=== PATIENT | female | born 1975 | race Caucasian/White ===

== ENCOUNTER → 2022-07-10 10:53 | Outpatient (BNVA) | payer MEDICAID, SELFPAY | PROVIDERS: Visit Provider Student in an Organized Health Care Education/Training Program | DX: S82.892A Other fracture of left lower leg, initial encounter for closed fracture (principal); X58.XXXA Exposure to other specified factors, initial encounter | CPT/HCPCS: 73610; A4590 ==

== ENCOUNTER 2022-07-15 10:06 | Day surgery (SDC) | payer MEDICAID, SELFPAY ==
[2022-07-15] VITALS (9 sets, daily range): BP systolic 142–161; BP diastolic 63–94; PULSE 59–73; RESP 13–18; TEMP 36.2–36.4; O2SAT 95–100
--- NOTE | 2022-07-15 | XR_ITS ---
WS: [id number] XR ankle LT 2V [id number] REASON FOR EXAM: janna pics FINDINGS: Plate and screw fixation of distal left fibular metadiaphyseal spiral fracture involving the syndesmo sis. Fracture fragments and surgical appliances are in proper position and alignment. XR/XR ankle LT 2V 74096 IMPRESSION: Fixation of left fibular fracture without abnormality.
[2022-07-15 10:38] LABS: OR HCG Qualitative Urine Negative (Negative)
--- NOTE | 2022-07-15 10:43 | ANES.PREANE2 ---
Pre-Anesthetic Assessment Height/Weight: Height 1.65 m Weight 117.934 kg Temp Pulse Resp BP Pulse Ox O2 Del Method 97.3 F L 65 18 158/89 98 07/15/22 10:33 07/15/22 10:33 07/15/22 10:33 07/15/22 10:33 07/15/22 10:33 07/15/22 10:33 Preop Diagnosis: Left bimalleolar equivalent ankle fracture Operation Date: 07/15/22 12:05 Proposed Procedures p open reduction internal fixation left ankle 84804 possible syndesmotic fixation left ankle 29018,T14.8XXA(Left) - Adam Gonzalez DO Familial anesthetic complications: None Was Beta Antonieta taken within 24 hours: N/A Was Clonidine taken within 24 hours: N/A Last intake: Intake Last Liquid Date 07/14/22 Last Liquid Time 23:50 Last Solid Date 07/14/22 Last Solid Time 23:40 Social No alcohol and No tobacco Exam alert, oriented x 3, clear to auscultation bilaterally and regular rate & rhythm Airway Mallampati: Class III Dentition: full Pulmonary Asthma Metabolic Morbid Obesity Anesthetic Plan ASA status: 2 Anesthesia: General and Regional (specify below) Risk of > 500 ml blood loss (7ml/kg in children): No Medications/Allergies Home Medications Medication Instructions Recorded Confirmed Last Taken Type No Known Home Medications 07/10/22 07/14/22 Unknown History Allergies Allergy/AdvReac Type Severity Reaction Status Date / Time No Known Allergies Allergy Verified 07/14/22 10:58 [facility] Anesthesia Medical History (Updated 07/14/22 @ 21:46 by Adam Gonzalez DO) Closed left ankle fracture Female Reproductive History Date of last menstrual period: 07/07/22 Data Anesthesia Cardiac Studies: No Data to Display
[2022-07-15] MEDS: ketorolac 30 mg/mL INJ IVP (11:08)
[2022-07-15] MEDS: acetaminophen 1,000 MG/100 ML PIGGYBACK 400 MG IV (11:09)
[2022-07-15] MEDS: sodium chloride 0.9% 1,000 ML 30 ML IV (11:09)
--- NOTE | 2022-07-15 12:52 | ANES.PROC ---
Anesthesia Procedures Procedure/Date: 07/15/22 Nerve Block ^: Nerve Block 1: Main Anesthesia: general anesthesia Time Out Performed: Yes Consent: requested by attending/covering physician, from patient, from other, risks and benefits reviewed and patient agrees to proceed Nerve block location: popliteal (L) Anesthesia monitors applied: pulse oximetry, EKG, BP cuff and oxygen Nerve block position: supine Anesthetic Used: ropivicaine 0.5% (30 ml) and with decadron (4 mg) Ultrasound used to: recognize landmarks and visualize and ID femerol nerve Nerve Stimulator Used?: No Interscalene/Femoral BLK: 4 stimuplex 21 g needle used for position and inplane approach, visualize local anesthetic spread and no vascular puncture identified Injection: neg aspiration of heme Patient Tolerated Procedure: well and no complications Complications: none
--- NOTE | 2022-07-15 14:56 | W.PM.OPSUD ---
Surgery/Procedure H&P Update DATE OF PROCEDURE: July 15, 2022 DATE H&P PERFORMED: 07/10/22 CHANGES TO PREVIOUS DOCUMENTATION: None PREOP DIAGNOSIS: Left distal fibula fracture PRIMARY INDICATION FOR PROCEDURE: Unstable left distal fibula fracture PLANNED PROCEDURE: Operation Date: 07/15/22 12:05 Proposed Procedures p open reduction internal fixation left ankle 80746 possible syndesmotic fixation left ankle 36788,T14.8XXA(Left) - Adam Gonzalez DO
[2022-07-15] MEDS: ceFAZolin 2,000 MG in sodium chloride 0.9% (plus) 50 ML 100 MG IV (15:00)
--- NOTE | 2022-07-15 16:29 | PM.OP2 ---
Brief Operative Note Date of procedure: 07/15/22 Pre-op diagnosis: Left distal fibula fracture bimalleolar equivalent Post-op diagnosis: same Procedure Done: Left ankle open reduction internal fixation Stress examination under anesthesia syndesmosis Interpretation mini fluoroscopic C arm imaging Surgeon: Adam Gonzalez Estimated blood loss (mL): 5 Complications: none Post-op Plan: Patient taken to PACU in stable condition recovering well. Splint on in place clean dry intact. Will be nonweightbearing to left lower extremity. Utilize crutches or walker as needed. Elevation and ice. Received appropriate discharge structure as well as pain medication postoperatively. We will follow-up with me in the office in 2 weeks. Condition: stable Disposition: same day Coding Level of Care Code Acute Geospatial Technician for Vel Abrams
--- NOTE | 2022-07-15 16:30 | PM.OP ---
Operative Report Date of procedure: July 19, 2022 Pre-op diagnosis: Preop Diagnosis Left distal fibula fracture Preop Diagnosis Left distal fibula fracture Post-op diagnosis: same Procedure done: Left distal fibula open reduction internal fixation Stress examination under anesthesia left ankle syndesmosis Interpretation mini fluoroscopic C arm imaging Implants: [place] distal fibular anatomic plate 6 hole To interfragmentary lag screws 2.7 mm 5 locking 3 cortical screws as well as 1 cortical in and out. Surgeon: Adam Gonzalez Estimated blood loss (mL): 5 Tourniquet time (min): 30 IV fluids (mL): 800 Complications: none Condition: stable Disposition: same day Brief History: Patient sustained a injury to her left ankle. She was found to have a spiral long fracture of the distal fibula. This was stressed under examination of external stress test with x-ray imaging in the office and found to be unstable in nature with medial clear space widening. We had detailed discussion with her about her treatment options as far as nonoperative and operative intervention. At this point time given the inherent instability of this injury as well as her young age would recommend surgical intervention of left distal fibula open reduction internal fixation with stress examination of syndesmosis with possible fixation. She understands the risk benefits complications alternatives to surgical nonsurgical treatment options. Understanding her wrist she agrees to proceed with surgical intervention. All questions answered at this time. Consent to obtain and signed in the office. Procedure: Patient seen evaluate in the preoperative holding area. Consent was reviewed and signed with patient. Correct extremity marked. Once seen evaluated by anesthesia underwent regional anesthesia for pain control. Once cleared for surgery by the anesthesia department was then brought back to the operative suite. She was placed into a supine position all bony prominences well-padded patient was properly secured to the bed. Patient then underwent anesthesia per the anesthesia department once appropriately anesthetized the left lower extremity had a nonsterile tourniquet applied to the left thigh. The left lower extremity was then prepped and draped in standard orthopedic fashion. An ipsilateral bump was placed under the left hip for appropriate foot positioning. Left lower extremity was then prepped and draped in standard orthopedic fashion. Final timeout performed. Patient received appropriate preoperative antibiotics. Esmarch tourniquet was used exsanguinate the left lower extremity and tourniquet was insufflated to 250 millimeters mercury.. A standard direct lateral approach was made to the distal fibula with sharp scalpel incision through skin and subcutaneous tissue. I protected the superficial peroneal nerve branch throughout this case. I then utilized a rosas face elevator and elevated all periosteum off of the bone with direct visualization of my fracture site which was a long spiral oblique fracture pattern. Noticeable instability and fracture gapping was noted with stressing. At this point time I then utilized my knife as well as pickups to free off any periosteum to allow for appropriate anatomic cortical read. I then utilized a dental pick to free of any interposed tissue and then utilized a [id number] clamp to perform my reduction and had anatomic reduction. Given the spiral nature of the fracture and this being long I plan for 2 interfragmentary lag screws. I subsequently drilled measured and placed 2 lag screws perpendicular across the fracture site which maintained my reduction mini C arm was used during the entire procedure to confirm appropriate placement. This completed my lag screw and then plan for neutralization plate fixation with distal fibula plate. Given the long fracture nature I then selected a 6-hole anatomic plate which would have appropriate bridging and added fixation and working length for the fracture. This was then placed in position to be in appropriate position on the distal fibula and confirmed with mini C arm and multiple orthogonal imaging. I then utilized olive wires to hold this into place and confirm its placement. Once confirmed I then placed a proximal cortical screw to bring the plate down to bone this was drilled measured the appropriate length and appropriate length screw was then placed with excellent fixation. Next I then drilled and placed a cortical screw to bring the plate to bone distally. Once this was performed I then subsequently drilled unit cortically and placed 3 unicortical locking screws around this and then subsequently removed the cortical screw and placed an additional locking screw for added fixation. This completed my distal fixation with 4 distal locking screws. Next I turned my attention towards the plate proximally and my proximal fixation. I subsequently drilled measured and placed 2 more additional cortical screws and then an additional locking screw for added fixation with 4 screws proximal and 4 screws distal. There is no gapping at the fracture site noted. Anatomic reduction was maintained and appropriate plate placement. At this point time I then brought in mini C arm to take final imaging of AP mortise and lateral. This showed stable reduction of fixation left distal fibula fracture. I then performed an external stress test and there was no medial clear space widening demonstrating stable fixation. This completed the surgery. Tourniquet was deflated. Hemostasis satisfactory with electrocautery. Wound bed thoroughly irrigated and then closed the incision with interrupted 2-0 Vicryl suture and tejal for skin. Xeroform 4 x 4's ABD Curlex and a well-padded posterior Ortho-Glass splint was then applied. Patient was then awakened from anesthesia and taken to PACU in stable condition and tolerated procedure without complications. Disposition: Patient taken to PACU in stable condition recovering well. Will receive appropriate discharge instruction as well as DVT prophylaxis and pain medication postoperatively. She will follow-up with me in the office in 2 weeks. Patient to be nonweightbearing to the left lower extremity. All questions answered at this time. Understand she had no questions or concerns she can contact the office.
--- NOTE | 2022-07-15 16:37 | P.PCN_ITS ---
PACU note Narrative: Patient taken to PACU in stable condition recovering well. Resting comfortably pain controlled. Received regional anesthesia. Toes are warm well- perfused distal pulses palpable. Unable to assess motor or sensory secondary to patient's anesthesia and regional. Exam: somnolent, arousable Disposition: discharged
--- NOTE | 2022-07-15 16:38 | PM.OP ---
Operative Report Date of procedure: July 15, 2022 Pre-op diagnosis: Preop Diagnosis Left distal fibula fracture
--- NOTE | 2022-07-15 16:42 | SUR.PHASEI ---
1626 PT TO PACU 5 PT SLEEPS WITH ORAL AIRWAY IN PLACE, GOOD RESP EFFORT NOTED MONITOR SR TO SB WITH NO ECTOPY NOTED SATS 100% ON 8L MASK. LT LOWER LEG TO TOES IN SPLINT AND FLORA WITH DISTAL TOES PINK WARM WITH CAP REFILL LESS THAN 3 SECONDS, FIRST ICE TO LT ANKLE, PT IV TO RT AC #20 WITH NS 200ML AT KVO RATE PER GRAVITY, ID BRACELET TO LT WRIST, PT ID'D WITH 2 IDENTIFIERS. FOOT PUMP TO RT FOOT. 1640 PT AWAKES AND ORAL AIRWAY OUT PT NODS HEAD NO TO PAIN THEN QUICKLY BACK TO SLEEP VSS WITH NO OBVIOUS DISTRESS NOTED.
--- NOTE | 2022-07-15 16:47 | SUR.PHASEI ---
PT ON RA TRIAL. VSS SATS 100% PT REQUESTS SPRITE TO SIP ON.
--- NOTE | 2022-07-15 17:04 | SUR.PHASEI ---
PT TO OPS BAY 8 PT ASSISTED UP TO BSC USING HER RT FOOT ONLY, PT ABLE TO VOID AND EASILY BACK TO BED WITH ASSIST OF 2 NURSING STAFF, PT AWAKE ALERT FAMILY AT BEDSIDE, HANDOFF AT BEDSIDE TO COTLE RN, DISTAL LT TOES PINK WARM AND DRESSING D/I AND UNCHANGED.
--- NOTE | 2022-07-15 17:15 | ANE.PACU2 ---
Inpatient post-anesthesia follow up: Airway intact: Yes Vital signs: Temperature 97.2 F Pulse Rate 68 Respiratory Rate 18 Blood Pressure 142/78 Pulse Oximetry 98 Oxygen Delivery Me thod Room Air Oxygen Flow Rate 8 Fraction of Inspir ed Oxygen Hydration adequate: Yes Nausea and vomiting: No Pain level: 1 Mental status: Baseline
[2022-07-15] MEDS: HYDROcodone-acetaminophen 5-325 mg Tablet 2 TAB PO (17:45)
== END 2022-07-15 18:05 | disposition home or self-care (01) ==
PROVIDERS: Anesthesiology; Visit Provider Student in an Organized Health Care Education/Training Program
PROC: (CPT 27792; principal; 2022-07-15 11:55)
DX: S82.402A Unspecified fracture of shaft of left fibula, initial encounter for closed fracture (principal); W19.XXXA Unspecified fall, initial encounter; J45.909 Unspecified asthma, uncomplicated; E66.01 Morbid (severe) obesity due to excess calories; Z68.41 Body mass index [BMI] 40.0-44.9, adult
CPT/HCPCS: 27792; 73600; 76000; 84703; C1713; J0131; J0690; J1100; J1885; J2405; J2704; J2795; J3010; J3490; J7030

== ENCOUNTER → 2022-08-01 11:07 | Outpatient (BNVA) | payer MEDICAID, SELFPAY | PROVIDERS: Visit Provider Student in an Organized Health Care Education/Training Program | DX: S82.892A Other fracture of left lower leg, initial encounter for closed fracture (principal); X58.XXXA Exposure to other specified factors, initial encounter | CPT/HCPCS: 73610 ==

== ENCOUNTER → 2022-09-01 10:11 | Outpatient (BNVA) | payer MEDICAID, SELFPAY | PROVIDERS: Visit Provider Student in an Organized Health Care Education/Training Program | DX: S82.892A Other fracture of left lower leg, initial encounter for closed fracture (principal); X58.XXXA Exposure to other specified factors, initial encounter | CPT/HCPCS: 73610 ==

== ENCOUNTER 2022-09-01 11:09 | Outpatient (CLI) | payer MEDICAID, SELFPAY | END 2022-09-01 11:10 | disposition home or self-care (01) | LOC: SPT 11:09 | PROVIDERS: Visit Provider Student in an Organized Health Care Education/Training Program | DX: Z46.89 Encounter for fitting and adjustment of other specified devices (principal); S82.892D Other fracture of left lower leg, subsequent encounter for closed fracture with routine healing; X58.XXXD Exposure to other specified factors, subsequent encounter | CPT/HCPCS: 97760; L1902 ==

== ENCOUNTER → 2022-09-29 13:41 | Outpatient (BNVA) | payer MEDICAID, SELFPAY | PROVIDERS: Visit Provider Student in an Organized Health Care Education/Training Program | DX: Z98.890 Other specified postprocedural states (principal); S82.892D Other fracture of left lower leg, subsequent encounter for closed fracture with routine healing; X58.XXXD Exposure to other specified factors, subsequent encounter | CPT/HCPCS: 73600 ==

== ENCOUNTER → 2024-09-10 12:39 | Outpatient (BNVA) | payer MEDICAID, SELFPAY | PROVIDERS: Visit Provider Nurse Practitioner | DX: M79.672 Pain in left foot (principal) | CPT/HCPCS: 73630 ==